=== PATIENT | female | born 1980 | race Caucasian/White ===

== ENCOUNTER 2021-09-22 08:39 | Emergency (ER) | payer BC, MEDICAID, SELFPAY ==
[2021-09-22 08:40] VITALS: BP 117/80; PULSE 106; RESP 16; TEMP 36.9; O2SAT 98; BMI 24.5
--- NOTE | 2021-09-22 09:14 | RAD_ITS ---
STUDY: X-RAY CHEST REASON FOR EXAM: Female, 41 years old. cough TECHNIQUE: AP COMPARISON: None. FINDINGS: The lungs are clear and expanded. There is no demonstrated pleural abnormality. Normal size heart. Normal mediastinum and arti. Normal visualized pulmonary arteries. Normal visualized aortic arch and descending thoracic aorta. Normal visualized thoracic spine. Normal visualized ribs, clavicles, and shoulders. There is no demonstrated abnormality of the visualized soft tissue structures of the upper abdomen. RAD/Chest 1 View (Portable) IMPRESSION: Nonacute portable x-ray examination of the chest. Electronically Signed: Bishop Prajapati MD ([place]) at 10:03 EST , Service support ,
--- NOTE | 2021-09-22 09:20 | EX.ED.DYSGE1 ---
HPI History of Present Illness Chief Complaint: Cough Informant: patient Narrative Narrative: This patient has had about 2 days of symptoms. She started with sore throat. She has significant myalgias. She states she aches all over. She has a ongoing dry cough. No real sputum production. Not dyspneic. But she keeps coughing quite frequently. She has used an inhaler in the past when she was sick but does not have any history of asthma. She also has popping in her ears and discomfort. She has nasal congestion and sore throat that started this. She had Covid vaccines the last was about a year ago. She had the 2 shot Maderna series. She has not yet had the booster. She is not having significant GI symptoms at this time. She has had no travel. PFSH PFSH Medical History no medical history Home Medications fluoxetine 10 mg PO DAILY 09/18/13 [History Last Taken Unknown] lorazepam 0.5 mg PO DAILY PRN PRN 09/18/13 [History Last Taken Unknown] ondansetron 4 mg PO Q8H PRN #10 tab 09/22/21 [Rx Last Taken Unknown] Allergy/AdvReac Type Severity Reaction Status Date / Time No Known Allergies Allergy Verified 09/22/21 09:06 Social History Smoking Status: Never smoker ROS ROS ED Constitutional Constitutional ED: Reports subjective Eyes Eyes: Denies blurry vision or change in vision ENT ENT ED: Reports ear pain, rhinorrhea and sore throat Cardiovascular Cardiovascular: Denies palpitations Respiratory/Chest Respiratory/Chest: Reports cough; Denies dyspnea or sputum Gastrointestinal Gastrointestinal: Denies abdominal pain, diarrhea, nausea or vomiting Genitourinary Genitourinary ED: Denies dysuria Musculoskeletal Musculoskeletal: Reports arthralgias and myalgias Integumentary Denies rash Neurologic Neurologic: Reports headache(s); Denies weakness Endocrine Endocrinology: Denies polydipsia or polyuria Allergic/Immunologic Allergic/Immunologic ED: Denies mouth swelling or urticaria EXAM Physical Exam Const Vital Signs: 09/22/21 08:40 09/22/21 09:55 09/22/21 09:57 Temperature 98.5 F Temperature Source Temporal Pulse Rate 106 H 82 Respiratory Rate 16 20 H Respiratory Effort Non-Labored Short of Breath Respiratory Pattern Normal Blood Pressure 117/80 Blood Pressure Mean 92 Pulse Ox 98 Oxygen Delivery Method Room Air Positive well nourished and well developed General Appearance ED: well developed and NAD; Negative for cyanotic, diaphoretic or pallor HEENT Reports TM's clear and moist mucous membranes Negative for tenderness Tympanic Membrane ED: Yes TM's clear Eyes EOMs intact bilaterally General Eye ED: Negative for pale conjunctiva or scleral icterus Neck no JVD Chest Wall inspection of chest normal Resp normal respiratory effort and clear to auscultation bilaterally Effort and Inspection: Negative for pain with movement Auscultation: Negative for rales, rhonchi or wheezes Cardio regular rate, regular rhythm and no murmurs GI normal to inspection, nondistended, normoactive bowel sounds and non-tender Palpation: soft Back/Spine no CVA tenderness Extremity normal to inspection General Extremety ED: Negative for edema or tenderness General Extremity: Negative for edema Neuro Sensorium / Orientation: alert Psych mental status grossly normal Skin no rashes or lesions noted General Skin Exam: Negative for jaundice or pallor MDM MDM MDM Narrative Medical decision making narrative: Patient's chest x-ray shows no acute process. Covid is positive. Influenza is negative. I explained patient that this is likely a 12 to 14-day illness. She does not have criteria for monoclonal therapy. I will write for Viv. Patient has not had nausea but this is such a common feature of this illness I will give her options for therapy. We discussed reasons to return. She should quarantine. Lab Data Attestation: I reviewed the patient's lab results. Radiography Diagnostic Testing: Clinical Impression(s) from Imaging Studies Chest X-Ray 09/22/21 09:14 IMPRESSION: Nonacute portable x-ray examination of the chest. Electronically Signed: Bishop Prajapati MD ([place]) at 10:03 EST , Service support , Discharge Plan Triage Chief Complaint: Cough ED Provider: Danyel Acosta Dx/Rx/DC Orders Clinical Impression: COVID Instructions: Coronavirus Disease 2019 (COVID-19): Caring for Yourself or Others Prescriptions: New ondansetron 4 mg tablet,disintegrating 4 mg PO Q8H PRN (Reason: nausea and vomiting) Qty: 10 RF: 0 No Action lorazepam 0.5 MG tablet 0.5 mg PO DAILY PRN PRN (Reason: Anxiety) RF: 0 fluoxetine 10 MG capsule 10 mg PO DAILY RF: 0 Primary Care Provider: Kash Montiel Referrals: Kash Montiel MD [Primary Care Provider] - 10-14 Days if not better Disposition Disposition: Home, Self Care
[2021-09-22] MEDS: Ipratropium/Albuterol Sulfate 3 ML AMPUL.NEB INHALATION (09:46)
[2021-09-22 09:57] VITALS: PULSE 82; RESP 20
[2021-09-22 11:12] VITALS: BP 126/85; PULSE 71; RESP 15; O2SAT 97
== END 2021-09-22 11:14 | disposition home or self-care (01) ==
PROVIDERS: Emergency Provider Emergency Medicine; PCP Family Medicine
DX: U07.1 COVID-19 (principal)
CPT/HCPCS: 71045; 87426; 87804; 94640; 99282

== ENCOUNTER → 2023-06-15 | Outpatient (CLI) | payer MEDICAID, SELFPAY ==
--- NOTE | 2023-06-15 12:19 | BI_ITS ---
MAMMOGRAPHY - BILATERAL SCREENING REASON FOR EXAM: Female, 43 years old. Routine annual screening examination. PERTINENT HISTORY: Aunt with breast cancer. Remote left excisional breast biopsy. TECHNIQUE: Digital bilateral breast delilah (3D mammographic acquisition) in the CC and MLO projections. 2-D mediolateral oblique (MLO) and craniocaudad (CC) views of both breasts were obtained. CAD: Full Field Digital Mammography with Computer Added Detection was performed. COMPARISON: None. Baseline examination. FINDINGS: Breast Composition: The breasts are heterogeneously dense, which may obscure small masses. There are no dominant masses or suspicious calcifications. No other significant abnormalities are identified. BI/SCRN MAMM (CAD)W/DELILAH BILAT IMPRESSION: Negative screening mammogram. Yearly followup mammogram recommended. (A) ASSESSMENT CATEGORY: BIRADS Category 1: Negative. A letter regarding these results will be sent to the patient by the facility within 30 days. Approximately 10% of breast cancers are not detected by mammography. A normal mammogram should not delay biopsy of a clinically suspicious abnormality. [id number] Electronically Signed: Matthew Elkins MD at 13:09 EDT ,
== END | disposition home or self-care (01) ==
LOC: OPBI 12:13
PROVIDERS: PCP Family Medicine; Referring Provider Advanced Practice Midwife; Visit Provider Advanced Practice Midwife
DX: Z12.31 Encounter for screening mammogram for malignant neoplasm of breast (principal)
CPT/HCPCS: 77063; 77067

== ENCOUNTER → 2023-07-12 | Outpatient (CLI) | payer OTHER, MEDICAID, SELFPAY ==
[2023-07-12 13:02] LABS: Basophil# 0.04 X10^3/uL; Basophil% 0.6 % (0-1); Eosinophil# 0.09 X10^3/uL; Eosinophils% 1.4 % (0-5); Hematocrit 42.5 % (37-47); Hemoglobin 13.8 g/dL (12.0-15.0); Lymphocyte % 26.8 % (19-41); Mean Corp Hgb Conc 32.5 g/dL (32-36); Mean Corpuscular Hgb 29.3 pg (27.0-32.0); Mean Corpuscular Volume 90.2 fL (81-99); Mean Platelet Vol. 9.9 fl (6.2-12.0); Monocyte# 0.52 X10^3/uL; Monocyte% 8.2 % (0-10); NRBC Flagged by Analyzer 0 % (0-5); Neutrophil # 3.97 X10^3/uL (2.7-7.7); Neutrophil % 62.7 % (47-70); Platelet Count 307 K/mm3 (150-450); RBC Distribution Width CV 12.5 % (11.6-14.6); RBC Distribution Width SD 41.2 fl (35.1-43.9); Red Blood Count 4.71 M/mm3 (4.2-5.4); White Blood Count 6.3 K/mm3 (4.4-11.0)
[2023-07-12 13:29] LABS: ALB/GLOB Ratio 1.2 RATIO (0.9-2.4); AST(SGOT) 11 U/L (15-37); Alanine Aminotransfer ALT/SGPT 23 U/L (13-56); Albumin, Serum 3.9 g/dL (3.2-5.0); Alkaline Phosphatase 64 U/L (45-117); Anion Gap 3 (5-15); BUN 6 mg/dL (7-18); BUN/Creat Ratio 8.6 RATIO (10-20); Calcium,Total 8.9 mg/dL (8.5-10.1); Chloride 110 mmol/L (98-107); Creatinine, Serum 0.69 mg/dL (0.55-1.02); EST Glomerular Filtration Rate 99 mL/min (>60); Est Glom Filt Rate - Afr Amer 120 mL/min (>60); Globulin 3.3 g/dL (2.2-4.2); Glucose 88 mg/dL (74-106); Potassium 3.6 mmol/L (3.5-5.1); Protein, Total 7.2 g/dL (6.4-8.2); Sodium Level 140 mmol/L (136-145)
== END | disposition home or self-care (01) ==
LOC: LAB 12:15
PROVIDERS: PCP Internal Medicine; Referring Provider Internal Medicine; Visit Provider Internal Medicine
DX: G43.909 Migraine, unspecified, not intractable, without status migrainosus (principal)
CPT/HCPCS: 36415; 80053; 85025

== ENCOUNTER → 2023-07-12 | Outpatient (CLI) | payer OTHER, MEDICAID, SELFPAY ==
--- NOTE | 2023-07-12 12:35 | RAD_ITS ---
STUDY: X-RAY - CERVICAL SPINE REASON FOR EXAM: Female, 43 years old. chronic Neck Pain TECHNIQUE: 3 view(s) of the cervical spine were obtained. COMPARISON: None FINDINGS: Normal anterior atlantoaxial articulation. Normal odontoid process. Normal cervical lordosis. Normal vertebral bodies and endplates. Normal disc space heights. Normal visualized intervertebral neuroforamina. The soft tissue structures are unremarkable. RAD/Cerv Spine 2 or 3 Views IMPRESSION: Normal x-ray examination of the visualized cervical spine. Electronically Signed: Moi Zimmer MD at 18:58 EDT ,
--- NOTE | 2023-07-12 12:41 | RAD_ITS ---
STUDY: X-RAY - THORACIC SPINE REASON FOR EXAM: Female, 43 years old. Chronic Back Pain TECHNIQUE: 2 view(s) of the thoracic spine were obtained. COMPARISON: None. FINDINGS: Normal kyphosis of the thoracic spine. There is no substantial scoliosis. Normal thoracic vertebrae and endplates. Normal disc space heights. The soft tissue structures are unremarkable. RAD/Thoracic Spine 2 Views IMPRESSION: Normal x-ray examination of the thoracic spine. Electronically Signed: Moi Zimmer MD at 18:59 EDT ,
== END | disposition home or self-care (01) ==
LOC: RAD 12:29
PROVIDERS: PCP Internal Medicine; Referring Provider Internal Medicine; Visit Provider Internal Medicine
DX: M54.2 Cervicalgia (principal); G89.29 Other chronic pain
CPT/HCPCS: 72040; 72070

== ENCOUNTER 2023-09-12 18:00 | Outpatient (RCR) | payer OTHER, MEDICAID, SELFPAY ==
--- NOTE | 2023-08-01 13:55 | HP.PTEVAL_ITS ---
Patient's Visit Information Visit Information Visit Information: EMILY MORALES is a 43 year old F referred to Physical Therapy by Dr. Maurice Centeno MD with a diagnosis of CERVICALGIA , CHRONIC , DORSALGIA ,UNSPECIFIED. Date of Evaluation: 08/01/23 Physical Therapist: Hany Doyle, PT, Cert MDT, OCS Visit Plan Frequency: 2x /Week Duration: 4 Weeks Plan: PT INTERVENTIONS MANUAL THERAPY CERVICAL TRACTION /STM ,CERVICAL ROM- AYANNA EX'S ,POSTURAL EX'S /STRENGTHENING Subjective Subjective: This 43 y/o female presents to physical therapy with neck pain . Patient c/o UT neck shoulders due to weight of breasts. Patent has cervical pain possible breast and DR recommended possible breast reduction. Pain of symptoms become worse as day goes on with ache and sharp pain in neck especially sitting at computer. Medication muscle relaxers. Patient has had x-rays -. Recommended PT . Seen chiropractor did not help. Tried massage. Aggravating factors sitting extended ,flexion ,turning neck later in day, job demands. Alleviating factors stretching ,exercise 3 x week. Denies nausea/tinnitus. C/O MARY. Patient pain affects sleeping . Patient plans to get MRI. Patient has no trauma /injury. Patient condition affects QOL and function/job demands. Patient goals to have no pain. 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 Pain Bilateral Neck: Pain Intensity (Out of 10): 6 Pain Intensity Range: 10 Bilateral Shoulder: Pain Intensity (Out of 10): 6 Pain Intensity Range: 10 Objective Objective: POSTURE: rounded shoulders head forward NEURO: denies paresthesia/tingling ,reflexes C5-6-7 2/3 PALPATION: tender levator/UT CERVICAL ROM: flexion min loss ,extension min loss ,lateral flexion mod loss ,rotation min/mod loss with pain with OP BUE: AROM WFL MMT: grossly 4/5 DEEP NECK FLEXORS : POOR 15 SECOND WITH PAIN Special Tests C/S Radiculapathy - Left Upper limb tension test: Negative C/S Radiculapathy - Right Upper limb tension test: Negative C/S Radiculapathy - Left Spurlings: Negative C/S Radiculapathy - Right Spurlings: Positive C/S Radiculapathy - Left Cervical distraction: Positive C/S Radiculapathy - Right Cervical distraction: Negative C/S Radiculapathy - Right Relief test: Negative C/S Radiculapathy - Valsalva: Negative Sharp [place]: Negative Vertebral Artery Test: Negative Alar Ligament Test: Negative Balance/Special Test Scores Oswestry Neck Score: 29 Goals Goal 1:: Patient to be I with HEP for neck Goal Time Frame: 4-6 Weeks Goal 2:: Patient to improve posture ADLS 80% OF THE TIME Goal Time Frame: 4-6 Weeks Goal 3:: Patient to improve cervical ROM 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 Goal Time Frame: 4-6 Weeks Goal 4:: Patient to improve neck oswestry score by 5 points to improve QOL and function Goal Time Frame: 4-6 Weeks Goal 5:: Patient to demonstrate 50% improvement with less pain and improve function. Goal Time Frame: 4-6 Weeks Rehabilitation Potential Physical Therapy Diagnosis: This patient has cervical and UT -shoulder pain with decrease posture with enlarged breast along with decrease cervical ROM and weakness of deep cervical flexors thus will benefit from skilled PT Anticipated Interventions Patient/Client Instruction: Educate patient on: Condition and Plan of Care For the Purpose of:: To decrease pain, To increase ROM, To improve muscle performance and motor function, To increase tolerance to activity/condition/position, To improve ability of physical actions for home/community/work/leisure, To improve health of tissue, To decrease soft tissue restriction, To increase flexibility/ROM and To reduce risk of recurrence Therapeutic Exercise to Include: Strength training, Postural training, Flexibilty training, Active ROM and Ayanna Exercises For the Purpose of:: To decrease pain, To increase ROM, To improve muscle performance and motor function, To increase tolerance to activity/condition/position, To decrease level of supervision to perform tasks, To improve health of tissue, To decrease soft tissue restriction, To increase flexibility/ROM and To prevent re-injury Manual Therapy Techniques to Include: Mobilization Comment: CERVICAL TRACTION For the Purpose of:: To decrease pain, To increase ROM, To improve nutrient delivery to tissue, To increase oxygenation perfusion, To improve gait and locomotor functions, To improve health of tissue and To decrease soft tissue restriction Text: Thank you for the opportunity to evaluate your patient. For Medicare and Medicare HMO plans, please review the plan of care and approve it. It will need to be FAXED BACK to us at [phone] for Medicare purposes. For Medicare only, by signing this I certify the plan of care. Please let me know if there are questions or concerns regarding this plan of care. Physician S ignature: Date:
--- NOTE | 2023-09-12 18:31 | HP.PTDCSUM ---
Discharge Summary D/C summary: It has been my pleasure to treat EMILY MORALES referred by Dr. Maurice Centeno MD, with the diagnosis of CERVICALGIA , CHRONIC , DORSALGIA ,UNSPECIFIED for a total of 9 visit(s). Discharge Date: 09/12/23 Please see the following information for a summary of their discharge status. Subjective Subjective: Patient reports pain is about same , Pain worse end of day after work all day and simple tasks of housework and ADLS makes pain worse Pain Bilateral Neck: Pain Intensity (Out of 10): 6 Bilateral Shoulder: Pain Intensity (Out of 10): 5 Overall Improvement % Improvement: 10 Objective Objective/Function: POSTURE: rounded shoulders head forward NEURO: denies paresthesia/tingling ,reflexes C5-6-7 2/3 PALPATION: tender levator/UT/scapular muscles CERVICAL ROM: flexion min loss ,extension min loss ,lateral flexion mod loss ,rotation min/mod loss with pain with OP BUE: AROM WFL MMT: grossly 4/5 Patient cervical traction manually reduces symptoms Goals Goal 1:: Patient to be I with HEP for neck Goal Progress: Goal Met Goal 2:: Patient to improve posture ADLS 80% OF THE TIME Goal 3:: Patient to improve cervical ROM 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 Goal Progress: Progressing Goal 4:: Patient to improve neck oswestry score by 5 points to improve QOL and function Goal Progress: Progressing Goal 5:: Patient to demonstrate 50% improvement with less pain and improve function. Goal Progress: Progressing Plan Plan: RTD Patient seen for PT for 9 sessions for cervical pain D/C Information d/c sentence: If there are questions or concerns regarding this patient's physical therapy, please feel free to call me at [phone]. Thank you for the referral of this patient. Sincerely, Hany Doyle, PT, Cert MDT, OCS Balance/Gait/Functional tests Balance/Special Test Scores Oswestry Neck Score: 16 Improvement % Improvement: 10
--- NOTE | 2023-09-12 18:31 | HP.PTDCSUM ---
Discharge Summary D/C summary: It has been my pleasure to treat EMILY MORALES referred by Dr. Maurice Centeno MD, with the diagnosis of CERVICALGIA , CHRONIC , DORSALGIA ,UNSPECIFIED for a total of 9 visit(s). Discharge Date: 09/12/23 Please see the following information for a summary of their discharge status. Subjective Subjective: Patient reports pain is about same , Pain worse end of day after work all day and simple tasks of housework and ADLS makes pain worse Pain Bilateral Neck: Pain Intensity (Out of 10): 6 Bilateral Shoulder: Pain Intensity (Out of 10): 5 Overall Improvement % Improvement: 10 Objective Objective/Function: POSTURE: rounded shoulders head forward NEURO: denies paresthesia/tingling ,reflexes C5-6-7 2/3 PALPATION: tender levator/UT/scapular muscles CERVICAL ROM: flexion min loss ,extension min loss ,lateral flexion mod loss ,rotation min/mod loss with pain with OP BUE: AROM WFL MMT: grossly 4/5 Patient cervical traction manually reduces symptoms Goals Goal 1:: Patient to be I with HEP for neck Goal Progress: Goal Met Goal 2:: Patient to improve posture ADLS 80% OF THE TIME Goal 3:: Patient to improve cervical ROM 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 Goal Progress: Progressing Goal 4:: Patient to improve neck oswestry score by 5 points to improve QOL and function Goal Progress: Progressing Goal 5:: Patient to demonstrate 50% improvement with less pain and improve function. Goal Progress: Progressing Plan Plan: RTD Patient seen for PT for 9 sessions for cervical and upper back pain D/C Information d/c sentence: If there are questions or concerns regarding this patient's physical therapy, please feel free to call me at [phone]. Thank you for the referral of this patient. Sincerely, Hany Doyle, PT, Cert MDT, OCS Balance/Gait/Functional tests Balance/Special Test Scores Oswestry Neck Score: 16 Improvement % Improvement: 10
== END 2023-09-12 19:00 | disposition home or self-care (01) ==
LOC: PT 18:00
PROVIDERS: PCP Internal Medicine; Referring Provider Orthopaedic Surgery Orthopaedic Surgery of the Spine; Visit Provider Orthopaedic Surgery Orthopaedic Surgery of the Spine
DX: M54.2 Cervicalgia (principal); M54.9 Dorsalgia, unspecified; G89.29 Other chronic pain
CPT/HCPCS: 97110; 97140; 97161

== ENCOUNTER 2023-11-11 05:49 | Day surgery (SDC) | payer OTHER, SELFPAY ==
[2023-10-21 12:06] LABS: Absolute Lymphocyte Count 1.88 X10^3/uL (0.83-4.51); Absolute Neutrophil Count 4.8 X10^3/uL (2.0-7.7); Basophil# 0.06 X10^3/uL; Basophil% 0.8 % (0-1); Eosinophil# 0.05 X10^3/uL; Eosinophils% 0.7 % (0-5); Hematocrit 41.9 % (37-47); Hemoglobin 14.1 g/dL (12.0-15.0); Lymphocyte # 1.88 X10^3/ul (0.83-4.51); Lymphocyte % 24.8 % (19-41); Mean Corp Hgb Conc 33.7 g/dL (32-36); Mean Corpuscular Hgb 29.7 pg (27.0-32.0); Mean Corpuscular Volume 88.2 fL (81-99); Mean Platelet Vol. 10.4 fl (6.2-12.0); Monocyte# 0.73 X10^3/uL; Monocyte% 9.6 % (0-10); NRBC Flagged by Analyzer 0 % (0-5); Neutrophil # 4.83 X10^3/uL (2.7-7.7); Neutrophil % 63.7 % (47-70); Platelet Count 309 K/mm3 (150-450); RBC Distribution Width CV 12.4 % (11.6-14.6); RBC Distribution Width SD 40.8 fl (35.1-43.9); Red Blood Count 4.75 M/mm3 (4.2-5.4); White Blood Count 7.6 K/mm3 (4.4-11.0)
[2023-10-21 12:55] LABS: ALB/GLOB Ratio 1.2 RATIO (0.9-2.4); AST(SGOT) 12 U/L (15-37); Alanine Aminotransfer ALT/SGPT 19 U/L (13-56); Alkaline Phosphatase 56 U/L (45-117); Anion Gap 4 (5-15); BUN 11 mg/dL (7-18); BUN/Creat Ratio 16.5 RATIO (10-20); Calcium,Total 9.3 mg/dL (8.5-10.1); Chloride 106 mmol/L (98-107); Creatinine, Serum 0.67 mg/dL (0.55-1.02); EST Glomerular Filtration Rate 103 mL/min (>60); Est Glom Filt Rate - Afr Amer 125 mL/min (>60); Globulin 3.2 g/dL (2.2-4.2); Glucose 91 mg/dL (74-106); Potassium 3.6 mmol/L (3.5-5.1); Protein, Total 7.2 g/dL (6.4-8.2); Sodium Level 137 mmol/L (136-145)
[2023-11-11] VITALS (7 sets, daily range): BP systolic 99–123; BP diastolic 65–86; PULSE 68–95; RESP 16–18; TEMP 36.1–37.1; O2SAT 95–100; BMI 25.1
--- OUTSIDE RECORDS SUMMARY | 2023-11-11 06:02 | XMS RPT_ITS | CCD ---
Author Name Unknown Address [address] [place] [address] Organization [facility] Care Team Providers Care Crime Laboratory Analyst Name Role Phone PROVIDER, UNKNOWN Admitting Unavailable PROVIDER, UNKNOWN Attending Unavailable Camila Barnes MD Primary Care Provider RAND EL Referring Unavailable CAMILA BARNES Primary Care Unavailable RAND EL Attending Unavailable CAMILA BARNES Primary Care Unavailable Problems Problem Classification Problem Date Documented Date Episodic/Chronic Contraceptive and procreative management (1 source) Encounter for other general counseling and advice on contraception; Translations: [ control counseling] Onset: 01-07-2023 Episodic Immunizations and screening for infectious disease (4 sources) Patient encounter status; Translations: [Encounter for screening for human papillomavirus (HPV)] Onset: 01-07-2023 Episodic Menstrual disorders (4 sources) Menometrorrhagia; Translations: [Excessive and frequent menstruation with irregular cycle] Onset: 01-07-2023 Chronic Other female genital disorders (1 source) Abnormal uterine and vaginal bleeding, unspecified; Translations: [Abnormal uterine bleeding (AUB)] Onset: 01-07-2023 Chronic Other screening for suspected conditions (not mental disorders or infectious disease) (3 sources) Cancer cervix screening status; Translations: [Encounter for screening for malignant neoplasm of cervix] Onset: 01-07-2023 Episodic Residual codes; unclassified (1 source) Family history of breast cancer; Translations: [Family history of malignant neoplasm of breast] Episodic Residual codes; unclassified (1 source) Family history of malignant neoplasm of breast; Translations: [Family history of breast cancer] Onset: 01-07-2023 Episodic Results Test Name Value Interpretation Reference Range Facil ity Vital Signs Date Time Vital Sign Value Performing Clinician Justa bee 01-07-2023 09:27-0400 Body height 171.5 cm Rand El APRN.CNM Work Phone: [facility] 01-07-2023 09:27040 Body weight 69.4 kg Rand El APRN.CNM Work Phone: [facility] 01-07-2023 09:27-0400 Diastolic blood pressure 62 mm[Hg] Rand El APRN.CNM Work Phone: [facility] 01-07-2023 09:27-0400 Systolic blood pressure 96 mm[Hg] Rand El APRN.CNM Work Phone: [facility] Encounters Encounter Date Encounter Type Care Provider Facility Start: 01-10-2023 Telephone encounter Rand abdul APRN.CNM Work Phone: OB/Gynecology Plan of Treatment Date Care Activity Detail Author Start: 06-07-2023 Urine microalbumin profile DTAP,TDAP,TD (2 - Td or Tdap) [facility] Start: 05-27-2023 Influenza vaccination INFLUENZA (Season Ended) [facility] Start: 09-26-2022 DEPRESSION ASSESSMENT DEPRESSION ASSESSMENT [facility] Start: 2022 Mammography MAMMOGRAM [facility] Start: 02-24-2022 HPV TESTING HPV TESTING [facility] Start: 02-24-2022 PAP TESTING PAP TESTING [facility] Start: 05-04-2021 COVID-19 VACCINE (4 - Booster) COVID-19 VACCINE (4 - Booster) [facility] Start: 1980 HEPATITIS B (1 of 3 - 3-dose series) HEPATITIS B (1 of 3 - 3-dose series) [facility] Insertion intrauteri ne device iud INSERT INTRAUTERINE DEVICE Procedures Routine Menorrhagia with irregular cycle Secondary dysmenorrhea Ordered: 01/07/2023 [facility] Work Phone: Immunizations Immunization Date Immunization Notes Care Provider Lorraine leon 06-07-2013 tetanus toxoid, redu juarez diphtheria toxoid, and acellular pertussis vaccine, adsorbed Rand El APRN.CNM Work Phone: [facility] 06-26-2011 influenza, seasonal, injectable Rand El APRN.CNM Work Phone: [facility] Payers Date Payer Category Payer Medicaid [employer] [facility] [id number] 2022-Present [phone] [address] [place] [address] Medicaid [id number] 2022 Medicaid [id number] 2020 Unknown 1980 Unknown [id number] Social History Date Type Detail Facility Tobacco smoking stat [facility] Never smoked tobacco [facility] Start: 01-07-2023 Alcohol intake Current non-dr edge inker of alcohol (finding) [facility] Start: 1980 Sex Assigned At Not on file [facility] Note 01-10-2023 Telephone Encounter - Renae Orozco RN - 01/10/2023 2:09 PM EDTTelephone Encounter - Renae Orozco RN - 01/10/2023 10:49 AM EDTTelephone Encounter - Renae Orozco RN - 01/10/2023 10:48 AM EDT Note Date & Type Note Facility 01-10-2023 Miscellaneous Notes Formattin g of this note might be different from the original. Patient notified. She will call back to schedule EMB and pelvic u/s. Renae Orozco RN Left message for patient to call office. Renae Orozco RN ----- Message from Rand El APRN.CNM sent at 01/09/2023 9:34 AM EDT ----- Please notify patient all labs are normal. Awaiting pelvic US and then can decide next steps. Please have her schedule EMB with me same day as US. She is not scheduled for US so please assist. Order placed. Rand El APRN.CNM documented in this encounter [facility] Progress note 01-07-2023 Note Date & Type Note Facility 01-07-2023 Note HNO ID: [id number] Author: Rand El APRN.CNM Service: ? Author Type: Attendant Honor Bar Type: Progress Notes Filed: 01/09/2023 9:34 AM Note Text: Emily is a 42 year old who presents for an annual gynecologic exam with complaints, irregular bleeding. Menses:Irregular cycle every 3 to 3.5 weeks. 7-10 days, flow heavy changing super plus every 3 hr. Dysmenorrhea during first 6 days of cycle. Always been this way. Contraception: tubal sterilization HPV vaccine: No Last Pap: 03/04/2017 normal HPV: 02/28/2017 negative History of abnormal pap: No Last mammogram: yes, uncertain of date. 2006. Had lump removed Sexually active: Yes Time with current partner: 1 current partner x 4 years Pain with intercourse: No Postcoital bleeding: No OB History T2 L2 SAB0 IAB0 Ectopic0 Multiple0 Live Births2 Export Documents Clerk History LMP: 12/18/2022 (Exact Date), Having periods Age at Menarche: Age at First : Age at Menopause: Export Documents Clerk History Comments: Sexual Activity: Yes; Male Contraception: Tubal Ligation PAST MEDICAL HISTORY Diagnosis Date Breast tumor 2006 Dysthymic disorder Depression (non-psychotic) PAST SURGICAL HISTORY Procedure Laterality Date ADENOIDECTOMY PRIMARY Adenoidectomy DELIVERY ONLY 01/29/2010 , low transverse DELIVERY ONLY 06/29/11 , low transverse AND BTO PAST SURGICAL HISTORY OF EXCISION OF BREAST TUMOR TONSILLECTOMY PRIMARY/SECONDARY Tonsillectomy FAMILY HISTORY Problem Relation Age of Onset Cancer Mother Throat Thyroid Mother Heart Father Hypertension Father Diabetes Maternal Grandmother Stroke Maternal Grandmother Alzheimer's Disease Maternal Grandfather Diabetes Paternal Grandmother SOCIAL HISTORY Social History Tobacco Use Smoking status: Never Smokeless tobacco: Never Vaping Use Vaping Use: Never used Substance Use Topics Alcohol use: No Drug use: No REVIEW OF SYSTEMS Abdomen: No abdominal pain, nausea, vomiting, diarrhea, or constipation. No bloating, early satiety, indigestion, or increased flatulence. Bladder: No dysuria, gross hematuria, urinary frequency, urinary urgency, or incontinence. Breast: No breast lumps, nipple d/c, overlying skin changes, redness or skin retraction. Allergies and current medication updated:Yes EXAM: BP 96/62 Ht 5' 7.5 (1.72m) Wt 153 lb (69.4kg) LMP 12/18/2022 BMI 23.60 kg/(m2). GENERAL: pleasant, female in no apparent distress HEENT: Normocephalic, atraumatic, mucus membranes moist, and no lesions NECK: Supple, full range of motion, no adenopathy, and thyroid normal DERMATOLOGY: Normal, without lesions, non-icteric, and non-hirsute BREAST: soft, non-tender, symmetric, no dominant mass, normal nipple-areolar complex, no lymphadenopathy, and no nipple discharge CHEST: Normal inspiratory effort ABDOMEN: soft, non-tender, and no masses PELVIC: external genitalia normal, normal Bartholin's glands, urethra, [place]'s glands, no vulvar lesions, no cervical lesions, good vaginal support, physiologic discharge present, normal appearing perineal body and perianal region BIMANUAL: uterus normal size, shape and consistency, no adnexal masses, and non-tender RECTOVAGINAL: deferred. NEURO: alert and oriented x3,exam grossly non-focal EXTREMITIES: normal ASSESSMENT/PLAN: 1. Encounter for gynecological examination (general) (routine) without abnormal findings - ICD9: V72.31, ICD10: Z01.419 (primary diagnosis) - Completed pelvic and breast exam - Encouraged monthly BSE - Follow up for annual exam in one year. - WAGNER SCREENING W DELILAH - PAP TEST 2. Screening for cervical cancer - ICD9: V76.2, ICD10: Z12.4 - Completed pelvic and breast exam - Encouraged monthly BSE - Follow up for annual exam in one year. - PAP TEST 3. Encounter for screening for human papillomavirus (HPV) - ICD9: V73.81, ICD10: Z11.51 - PAP TEST 4. Encounter for screening mammogram for breast cancer - ICD9: V76.12, ICD10: Z12.31 - Completed pelvic and breast exam - Encouraged monthly BSE - Follow up for annual exam in one year. - WAGNER SCREENING W DELILAH 5. Menorrhagia with irregular cycle - ICD9: 626.2, ICD10: N92.1 - US FEMALE PELVIS TRANSVAG - TSH BLD - PROLACTIN BLD - CBC + DIFF - IRON + TIBC - FERRITIN BLD - INSERT INTRAUTERINE DEVICE 6. Secondary dysmenorrhea - ICD9: 625.3, ICD10: N94.5 - US FEMALE PELVIS TRANSVAG - TSH BLD - PROLACTIN BLD - CBC + DIFF - IRON + TIBC - FERRITIN BLD - INSERT INTRAUTERINE DEVICE 7. Family history of breast cancer - ICD9: V16.3, ICD10: Z80.3 - CONSULT TO MEDICAL GENETICS - GENERAL 8. control counseling - ICD9: V25.09, ICD10: Z30.09 -Talked about Mirena IUD as an option. Will discuss after results. Had out given. R/B/A reviewed. 1) Health maintenance: Pap done with HPV. Mammogram ordered. Nutrition, exercise and routine health maintenance (more content not included)... [facility] History of Present illness Narrative 01-07-2023 Rand El APRN.GARRETT - 01/07/2023 9:26 AM EDT Note Date & Type Note Facility 01-07-2023 History of Presen t illness Narrative Emily is a 42 year old who presents for an annual gynecologic exam with complaints, irregular bleeding. Menses:Irregular cycle every 3 to 3.5 weeks. 7-10 days, flow heavy changing super plus every 3 hr. Dysmenorrhea during first 6 days of cycle. Always been this way. Contraception: tubal sterilization HPV vaccine: No Last Pap: 03/04/2017 normal HPV: 02/28/2017 negative History of abnormal pap: No Last mammogram: yes, uncertain of date. 2006. Had lump removed Sexually active: Yes Time with current partner: 1 current partner x 4 years Pain with intercourse: No Postcoital bleeding: No OB History T2 L2 SAB0 IAB0 Ectopic0 Multiple0 Live Births2 Export Documents Clerk History LMP: 12/18/2022 (Exact Date), Having periods Age at Menarche: Age at First : Age at Menopause: Export Documents Clerk History Comments: Sexual Activity: Yes; Male Contraception: Tubal Ligation PAST MEDICAL HISTORY Diagnosis Date Breast tumor 2006 Dysthymic disorder Depression (non-psychotic) PAST SURGICAL HISTORY Procedure Laterality Date ADENOIDECTOMY PRIMARY <AGE 14 Adenoidectomy DELIVERY ONLY 01/29/2010 , low transverse DELIVERY ONLY 06/29/11 , low transverse AND BTO PAST SURGICAL HISTORY OF EXCISION OF BREAST TUMOR TONSILLECTOMY PRIMARY/SECONDARY <AGE 14 Tonsillectomy FAMILY HISTORY Problem Relation Age of Onset Cancer Mother Throat Thyroid Mother Heart Father Hypertension Father Diabetes Maternal Grandmother Stroke Maternal Grandmother Alzheimer's Disease Maternal Grandfather Diabetes Paternal Grandmother SOCIAL HISTORY Social History Tobacco Use Smoking status: Never Smokeless tobacco: Never Vaping Use Vaping Use: Never used Substance Use Topics Alcohol use: No Drug use: No REVIEW OF SYSTEMS Abdomen: No abdominal pain, nausea, vomiting, diarrhea, or constipation. No bloating, early satiety, indigestion, or increased flatulence. Bladder: No dysuria, gross hematuria, urinary frequency, urinary urgency, or incontinence. Breast: No breast lumps, nipple d/c, overlying skin changes, redness or skin retraction. Allergies and current medication updated:Yes EXAM: BP 96/62 Ht 5' 7.5 (1.72m) Wt 153 lb (69.4kg) LMP 12/18/2022 BMI 23.60 kg/(m^2). GENERAL: pleasant, female in no apparent distress HEENT: Normocephalic, atraumatic, mucus membranes moist, and no lesions NECK: Supple, full range of motion, no adenopathy, and thyroid normal DERMATOLOGY: Normal, without lesions, non-icteric, and non-hirsute BREAST: soft, non-tender, symmetric, no dominant mass, normal nipple-areolar complex, no lymphadenopathy, and no nipple discharge CHEST: Normal inspiratory effort ABDOMEN: soft, non-tender, and no masses PELVIC: external genitalia normal, normal Bartholin's glands, urethra, [place]'s glands, no vulvar lesions, no cervical lesions, good vaginal support, physiologic discharge present, normal appearing perineal body and perianal region BIMANUAL: uterus normal size, shape and consistency, no adnexal masses, and non-tender RECTOVAGINAL: deferred. NEURO: alert and oriented x3,exam grossly non-focal EXTREMITIES: normal ASSESSMENT/PLAN: 1. Encounter for gynecological examination (general) (routine) without abnormal findings - ICD9: V72.31, ICD10: Z01.419 (primary diagnosis) - Completed pelvic and breast exam - Encouraged monthly BSE - Follow up for annual exam in one year. - WAGNER SCREENING W DELILAH - PAP TEST 2. Screening for cervical cancer - ICD9: V76.2, ICD10: Z12.4 - Completed pelvic and breast exam - Encouraged monthly BSE - Follow up for annual exam in one year. - PAP TEST 3. Encounter for screening for human papillomavirus (HPV) - ICD9: V73.81, ICD10: Z11.51 - PAP TEST 4. Encounter for screening mammogram for breast cancer - ICD9: V76.12, ICD10: Z12.31 - Completed pelvic and breast exam - Encouraged monthly BSE - Follow up for annual exam in one year. - WAGNER SCREENING W DELILAH 5. Menorrhagia with irregular cycle - ICD9: 626.2, ICD10: N92.1 - US FEMALE PELVIS TRANSVAG - TSH BLD - PROLACTIN BLD - CBC + DIFF - IRON + TIBC - FERRITIN BLD - INSERT INTRAUTERINE DEVICE 6. Secondary dysmenorrhea - ICD9: 625.3, ICD10: N94.5 - US FEMALE PELVIS TRANSVAG - TSH BLD - PROLACTIN BLD - CBC + DIFF - IRON + TIBC - FERRITIN BLD - INSERT INTRAUTERINE DEVICE 7. Family history of breast cancer - ICD9: V16.3, ICD10: Z80.3 - CONSULT TO MEDICAL GENETICS - GENERAL 8. control counseling - ICD9: V25.09, ICD10: Z30.09 -Talked about Mirena IUD as an option. Will discuss after results. Had out given. R/B/A reviewed. 1) Health maintenance: Pap done with HPV. Mammogram ordered. Nutrition, exercise and routine health maintenance exams reviewed. Calcium/Vitamin D supplementation information provided. Lipids/glucose: followed by PCP 2) Contraception: IUD. Contraceptive options reviewed and information provided. 3) STD screening: Declined STD check. 4) Follow up one year or sooner as needed Josefina Varma MD documented in this encounter [facility] History of Past illness Narrative 12-11-2010 Note Date & Type Note Facility documented as of this encounter (statuses as of 01/07/2023) [facility] History of Past illness Narrative 12-11-2010 Note Date & Type Note Facility documented as of this encounter (statuses as of 01/10/2023) [facility] Evaluation note Note Date & Type Note Facility documented in this encounter [facility] Reason for referral (narrative) Outpatient Procedure (Routine) - Pending Review Note Date & Type Note Facility Referral ID Status Reason Start Date Expiration Date Visits Requested Visits Authorized [id number] Pending Review Auto-Generat ed Referral 01/07/2023 01/07/2024 1 1 * Consult, Test, Treat (Routine) - Authorized Specialty Diagnoses / Procedures Referred By Harsha gupta Referred To Contact Diagnoses Family history of breast cancer Procedures CONSULT TO MEDICAL GENETICS - GENERAL OFFICE/OUTPATIENT [facility] 60-74 MINUTES MEDICAL GENETICS COUNSELING EACH 30 MINUTES Rand El APRN.CNM [address] [place] [address] [place] [address] Referral ID Status Reason Start Date Expiration Date Visits Requested Visits Authorized [id number] Authorized PCP Requested Referral Auto-Generate d Referral 01/07/2023 01/07/2024 1 1 * Diagnostic Procedure Only (Routine) - Pending Review Specialty Diagnoses / Procedures Referred By Harsha gupta Referred To Contact [facility] Diagnoses Menorrhagia with irregular cycle Secondary dysmenorrhea Procedures US FEMALE PELVIS TRANSVAG US TRANSVAGINAL Rand El APRN.CNM [address] [place] [address] [facility] Referral ID Status Reason Start Date Expiration Date Visits Requested Visits Authorized [id number] Pending Review Auto-Generat ed Referral 01/07/2023 02/06/2024 1 1 * Diagnostic Procedure Only (Routine) - Pending Review Specialty Diagnoses / Procedures Referred By Harsha t Referred To Contact [facility] Diagnoses Encounter for gynecological examination (general) (routine) without abnormal findings Encounter for screening mammogram for breast cancer Procedures WAGENR SCREENING W DELILAH SCREENING DIGITAL BREAST TOMOSYNTHESIS BI SCREENING MAMMOGRAPHY BI 2-VIEW BREAST INC Rand Alex APRN.CNM [address] [place] [address] [facility] [address] [place] [address] Referral ID Status Reason Start Date Expiration Date Visits Requested Visits Authorized [id number] Pending Review Auto-Generat ed Referral 01/07/2023 02/06/2024 1 1 [facility] Summary Purpose Family History No Family History Records FoundNo Family History Records Found Advance Directives No Advanced Directives Records FoundNo Advanced Directives Records Found Additional Source Comments INFORMATION SOURCE (unrecogn ized section and content) DATE CREATED AUTHOR AUTHOR'S ORGANIZ ATION 01/15/2023 [facility] Source Comments (unrecognize d section and content) In the event this informatio n is protected by the Federal Confidentiality of Alcohol and Drug Abuse Patient Records regulations: The Federal rules restrict any use of the information to criminally investigate or prosecute any alcohol or drug abuse patient.[facility] the event this information is protected by the Federal Confidentiality of Alcohol and Drug Abuse Patient Records regulations: The Federal rules restrict any use of the information to criminally investigate or prosecute any alcohol or drug abuse patient.[facility] Reason for Visit (unrecogniz ed section and content) Reason Comments Results Care Teams (unrecognized sec tion and content) Crime Laboratory Analyst Relationship Specialty Start Date End Date Camila Barnes MD [address] [place], [place] [address] PCP - General Family Medicine 12/14/16 FOR RECORDS PERTAINING TO PATIENTS WHO ARE OR HAVE BEEN ENROLLED IN A CHEMICAL DEPENDENCY/SUBSTANCEABUSE PROGRAM, SOME INFORMATION MAY BE OMITTED. This clinical summary was aggregated from multiple sources. Caution should be exercised in using it in the provision of clinical care. This summary normalizes information from multiple sources, and as a consequence, information in this document may materially change the coding, format and clinical context of patient data. In addition, data may be omitted in some cases. CLINICAL DECISIONS SHOULD BE BASED ON THE PRIMARY CLINICAL RECORDS. [facility]. provides no warranty or guarantee of the accuracy or completeness of information in this document.
[2023-11-11 06:21] LABS: Internal QC Validated? YES +Cl - CLEAR BKGD; Pregnancy, Urine Negative Negative
[2023-11-11] MEDS: Lactated Ringers 1,000 ML 15 ML IV (06:32)
--- NOTE | 2023-11-11 07:21 | PCM.HP.BLA ---
History and Physical Date of Admission: 11/11/23 The patient is examined. There are no changes to the H&P dated 10/20/23. Pt with symptomatic macromastia. Assessment & Plan Assessment/Plan (1) Cervicalgia: (2) Macromastia: (3) DDD (degenerative disc disease), cervical: PLAN: Plan We will proceed with bilateral breast reduction.
--- NOTE | 2023-11-11 07:30 | BR_PTH ---
PATHOLOGY RESULTS PATIENT: EMILY MORALES LOC: [facility] [place][id number] AGE/SX: 43/F ROOM: RE11/11/[address]: Dr. Vicenta Kothari MD : 1980 BED: DIS: 11/11/2023 SPEC #: [id number] RECD: 11/11/23 12:34 STATUS: TANA DAVID #: [id number] ONEYDA: 11/11/23 07:[address]: Vicenta Kothari DEPT: SURGICAL PATHOLOGY RECD BY: Raven Altamirano ENTERED: 11/11/23 12:34 SP TYPE: MAMOPLASTY OTHR DR: MD Hector Frank PA Tissues: Right breast, NOS Left breast, NOS Procedures: Surgery Specimen Level IV HEADER OPERATION: Bilateral breast reduction PRE-OP DIAGNOSIS: Symptomatic macromastia TISSUE SUBMITTED: A- Left breast tissue, B- Right breast tissue MICROSCOPIC DIAGNOSIS A. Left breast, reduction mammoplasty: Mild fibrocystic change. Skin with no pathologic change. No evidence of malignancy. B. Right breast, reduction mammoplasty: Mild fibrocystic change. Skin with no pathologic change. No evidence of malignancy. AM:malathi 11/15/2023 MICROSCOPIC DESCRIPTION Slides are reviewed. GROSS DESCRIPTION A - Received in fixative is one container labeled with the patient's name and designated left breast tissue. The specimen consists of multiple pieces of fibroadipose tissue with a few of the pieces showing jarquin-white skin, weighing in aggregate 186 gm (weighed in OR) and measuring in aggregate 16.0 x 16.0 x 4.0 cm. No skin lesion is identified. Sections reveal yellow adipose cut surfaces mixed with scant fibrous areas. No mass lesion is identified. Polysomnography Technician sections are submitted in six cassettes. Cassette 1 contains the skin piece. B - Received in fixative is one container labeled with the patient's name and designated right breast tissue. The specimen consists of multiple pieces of fibroadipose tissue with a few of the pieces showing jarquin-white skin, weighing in aggregate 254 gm (weighed in OR) and measuring in aggregate 16.0 x 16.0 x 5.0 cm. No skin lesion is identified. Sections reveal yellow adipose cut surfaces mixed with scant fibrous areas. No mass lesion is identified. Polysomnography Technician sections are submitted in six cassettes. Cassette 1 contains the skin piece. / SJ:malathi 11/14/2023 TC:5 CPT: 22875 x2
[2023-11-11] MEDS: Cefazolin 2 GM in 0.9% Normal Saline (100mL Bag) 100 ML IV (07:57)
[2023-11-11] MEDS: Gentamicin 80 MG/2 ML Vial (08:12)
[2023-11-11] MEDS: Methylene Blue 1% 100 MG/10 ML VIAL (08:12)
[2023-11-11] MEDS: Bupivacaine 0.25% 30 ML Vial (11:44)
--- NOTE | 2023-11-11 12:09 | DCINST_ITS ---
Discharge Instructions Dressing / Incision Additional Dressing/Incision Instructions:: Keep your back elevated (recliner position) to reduce swelling and bruising. Follow the instructions provided in the office. Follow Up Care Please Follow Up With: Vicenta Kothari MD When: in 1 week Test Results: Test results from this visit will be discussed in further detail at your follow- up appointment, if applicable. Discharge Plan Admission Attending Provider: Vicenta Kothari Primary Care Provider: Chris Farris Consulting Providers: Hector Mar Discharge Orders/Prescriptions Prescriptions: No Action ibuprofen 200 mg capsule 200 mg PO BID sumatriptan succinate [Imitrex] 25 mg tablet See Rx Instructions PO .COMPLEX Qty: 14 1RF Rx Instructions: take 1 tab at onset of headache; if no relief may repeat 1 tab after at least 2 hrs; max = 4 tabs/24 hr PO tizanidine 2 mg tablet 2 mg PO TID PRN (Reason: muscle spasticity) Qty: 60 1RF cephalexin 500 mg capsule 500 mg PO BID Qty: 14 0RF cephalexin 500 mg capsule 500 mg PO BID Qty: 14 0RF Referrals / Follow Up: Chris Farris MD [Primary Care Provider] - Disposition Disposition (needs filled in before D/C Order can be placed): Home, Self Care
--- NOTE | 2023-11-11 12:12 | OP.PCM_ITS ---
Problems Associated Problem List Diagnoses (1) Cervicalgia: (2) Macromastia: Report of Operation Date of Procedure: 11/11/23 Pre-Operative Diagnosis: Bilateral macromastia, chronic neck and back pain Post-Operative Diagnosis: Same Surgery/Procedure Performed:: Bilateral breast reduction (left?186 g; right?254 g) Surgeon: Vicenta Kothari hosting engineer: SELWYN VANGrefining still operator Type of Anesthesia: General Specimen's removed: Bilateral breast tissue Drains: None Estimated Blood Loss (mL): 50 cc Description of Procedure: The patient presents for bilateral breast reduction. The procedure had been thoroughly reviewed with the patient including the expected pre-, intra-, postoperative course. The patient has appreciable asymmetry and is aware that this will be improved but may not be exactly symmetric. The potential risk and complications of surgery were reviewed which include but are not exclusive of bleeding, infection, pain, numbness, asymmetry, scar tissue, skin necrosis, the need for further surgery, DVT, and even . She is marked in the preop holding area prior to surgery. Procedure the patient is brought to the operating room and placed under general anesthesia in the supine position. Care is taken to pad all pressure points, insert a Hernandez catheter, a warming blanket, and sequential compression stockings. The breast are prepped and draped in the usual sterile fashion. We initially began with incising all the premarked incisions. Following this, the pedicle is de-epithelialized after marking the areola at 42 mm in diameter. The medial and lateral inferior aspects of the breast were then removed using argon coagulation. Following this, the pedicle was from the upper flap and dissection continued cephalad maintaining the upper flap at least 2 cm in thickness. All tissue was passed off the operative field to be weighed and sent to pathology. The pedicle is then trimmed in order to allow to comfortably fit beneath the upper flap. The wound is irrigated with antibiotic solution and checked for hemostasis which is controlled with cautery. The breast is then infolded and tacked in place using silk suture and skin clips. When an acceptable size and shape is noted, would begin to close the incisions. A 3-0 Vicryl suture was used to approximate of several spots along the inframammary crease. Following this, a 3-0 STRATAFIX suture is used to close the incisions in 3 layers in a running fashion. The skin edges are closed with a subcuticular suture. Approximately 4 cm above the inframammary crease, the nipple areola is brought out through an opening and tacked in place with interrupted nylon suture. Following this, the incisions are further closed with a subcuticular strata fix suture. We then directed our attention to the opposite side with the identical procedures performed. Quarter percent plain Marcaine is injected along the incisions. The incisions are then dressed with Xeroform and fluff gauze. A very thin layer of Nitropaste is placed on the areola to facilitate va scularity. The patient is then placed in a surgery bra. She tolerated the procedure well was taken to the recovery area in an awakening in stable condition. Needle and sponge counts are correct. Complications None Admit VTE Documentation VTE Mechan Device Prophylaxis: SCD's
== END 2023-11-11 15:46 | disposition home or self-care (01) ==
LOC: SDC 05:50 → AC 05:51
PROVIDERS: Anesthesiology; Physician Assistant; PCP Internal Medicine; Referring Provider Plastic Surgery; Visit Provider Plastic Surgery
PROC: 0H0U0ZZ Alteration of Left Breast, Open Approach (ICD-10-PCS; CPT 19318; principal; 2023-11-11 07:15)
DX: N60.11 Diffuse cystic mastopathy of right breast (principal); N60.12 Diffuse cystic mastopathy of left breast; M54.2 Cervicalgia; G89.29 Other chronic pain; X58.XXXA Exposure to other specified factors, initial encounter
CPT/HCPCS: 19318; 36415; 80053; 81025; 85025; 88305; J7120; J2405